=== PATIENT | male | born 2000 | race Caucasian/White ===

== ENCOUNTER 2021-04-04 19:39 | Emergency (ER) | payer MEDICAID ==
[2021-04-04] MEDS ORDERED: Lidocaine 1% 10 ML MDV INJECT ONE (19:55)
--- NOTE | 2021-04-04 20:17 | EDM.PDOC ---
ED HPI GENERAL MEDICAL PROBLEM - General Chief Complaint: Laceration Stated Complaint: CUT THUMB ON LEFT HAND Time Seen by Provider: 04/04/21 19:47 Source of Information: Reports: Patient, RN Notes Reviewed History Limitations: Reports: No Limitations - History of Present Illness INITIAL COMMENTS - FREE TEXT/NARRATIVE: Patient is a 20-year-old male presenting to the emergency department with complaints of laceration to his left hand. Reports that he was using a cutting torch piece of metal hit him in the hand. Last tetanus vaccination was less than 10 years ago. Left Finger-Thumb Pain Score (Numeric/FACES): 2 - Related Data Allergies Allergy/AdvReac Type Severity Reaction Status Date / Time No Known Allergies Allergy Verified 04/04/21 19:54 Home Meds: Home Meds . [No Known Home Meds] 04/04/21 [History] Past Medical History Cardiovascular History: Reports: Other (See Below) Other Cardiovascular History: VSD Social & Family History - Tobacco Use Tobacco Use Status *Q: Never Tobacco User - Caffeine Use Caffeine Use: Reports: Tea - Recreational Drug Use Recreational Drug Use: No ED ROS GENERAL - Review of Systems Review Of Systems: Comprehensive ROS is negative, except as noted in HPI. ED EXAM, SKIN/RASH Exam: See Below Exam Limited By: No Limitations General Appearance: Alert, WD/WN, No Apparent Distress Respiratory/Chest: No Respiratory Distress, Lungs Clear, Normal Breath Sounds, No Accessory Muscle Use, Chest Non-Tender Cardiovascular: Normal Peripheral Pulses, Regular Rate, Rhythm, No Edema, No Gallop, No JVD, No Murmur, No Rub Extremities: Other (1.5 cm laceration to the dorsal aspect of the left hand immediately proximal to the first MCP joint. Patient has full strength to flexion extension as well as range of motion. Denies any paresthesia) Neurological: Alert, Oriented, CN II-XII Intact, Normal Cognition, Normal Gait, Normal Reflexes, No Motor/Sensory Deficits Psychiatric: Normal Affect, Normal Mood ED SKIN PROCEDURES - Laceration/Wound Repair Left Dorsal Hand Appearance: Subcutaneous Distal NVT: Neuro & Vascular Intact, No Tendon Injury Anesthetic Type: Local Local Anesthesia - Lidocaine (Xylocaine): 1% Plain Local Anesthetic Volume: 1cc Skin Prep: Chlorhexidine (Hibiciens), Providone-Iodine (Betadine), Saline, Sterile Drape Exploration/Debridement/Repair: Wound Explored, In a Bloodless Field, Explored to Base, No Foreign Material Found Closed with: Sutures Lac/Wound length In cm: 1.5 Suture Size: 4-0 # of Sutures: 3 Suture Type: Nylon Sterile Dressing Applied: Nurse Tetanus Status Addressed: Yes Complications: No Course - Vital Signs Last Recorded V/S: Last Vital Signs Temp 98 F 04/04/21 19:52 Pulse 90 04/04/21 19:52 Resp 16 04/04/21 19:52 BP 141/83 H 04/04/21 19:52 Pulse Ox 99 04/04/21 19:52 - Orders/Labs/Meds Meds: Medications Discontinued Medications Generic Name Dose Route Start Last Admin Trade Name Freq PRN Reason Stop Dose Admin Lidocaine HCl 10 ml 04/04/21 19:55 Lidocaine 1% 10 Ml Mdv INJECT 04/04/21 19:56 ONETIME ONE Departure - Departure Time of Disposition: 20:14 Disposition: Home, Self-Care 01 Condition: Good Clinical Impression: Laceration - Discharge Information *PRESCRIPTION DRUG MONITORING PROGRAM REVIEWED*: No *COPY OF PRESCRIPTION DRUG MONITORING REPORT IN PATIENT SG: No Instructions: Laceration Care, Adult Referrals: PCP,Not In Area [Primary Care Provider] - Additional Instructions: You were seen in the emergency department today for a laceration to your left hand. The wound was cleansed and closed with 3 sutures. These should stay intact for 7 days. After that time they may be removed in the clinic by a nurse. You may call [phone] to schedule a nurse visit. Keep the wound clean and dry. Wash with normal soap and water twice daily. Do not submerge the wound in water. Watch for signs of infection including increased redness, s welling, or purulent drainage. If these should occur, you should be seen either in the clinic or in the emergency department as antibiotic treatment may be needed. Return to the ER as needed. Sepsis Event Note (ED) - Evaluation Sepsis Screening Result: No Definite Risk - Focused Exam Vital Signs: Vital Signs Temp Pulse Resp BP Pulse Ox 04/04/21 19:52 98 F 90 16 141/83 H 99
== END 2021-04-04 20:25 | disposition home or self-care (01) ==
LOC: JD.ED 19:39
DX: S61.012A Laceration without foreign body of left thumb without damage to nail, initial encounter (principal); W22.8XXA Striking against or struck by other objects, initial encounter; W26.8XXA Contact with other sharp object(s), not elsewhere classified, initial encounter
CPT/HCPCS: 12001; 99282-25